=== PATIENT | female | born 1965 | race Hispanic/Latino ===

== ENCOUNTER → 2018-01-03 | Outpatient (CLI) | payer BC ==
--- NOTE | 2018-01-07 17:03 | Pulmonary Function Test ---
DATE OF STUDY: January 03, [address] Rashad Jordan. Restrictive spirometry: Severe obstructive pulmonary disease though effort appears to have been somewhat suboptimal because of cough. Forced vital capacity 1.81 liters, 62% of predicted. FEV1 0.88 liters, 38%. FEV1:FVC ratio 49%. [id number], 30%. There was significant improvement to near normal following inhalation of bronchodilators. Forced vital capacity 2.26 liters, 77% of predicted, a 25% improvement. In FEV1, 2.10 liters, 90% of predicted, 138% improvement. Findings suggest bronchial asthma though pre-bronchodilator effort may have been suboptimal due to her cough but certainly a significant improvement to near normal following inhalation of bronchodilators. Job#: [id number] [email or web address]
== END ==
LOC: RESP 09:54
PROVIDERS: ATTEND Family Medicine
DX: R05 Cough (principal)
CPT/HCPCS: 94060